=== PATIENT | male | born 1975 | race American Indian/Alaskan Native ===

== ENCOUNTER 2021-08-30 21:29 | Emergency (ER) | payer MEDICARE ==
--- NOTE | 2021-08-30 21:59 | Emergency Department Report ---
ED Palpitations HPI - General Chief Complaint: Arrhythmia/Palpitations Stated Complaint: SVT Time Seen by Provider: 08/30/21 21:40 Source: patient, EMS Mode of arrival: Stretcher Limitations: No Limitations - History of Present Illness Initial Comments: Patient is a 46-year-old male who presents emergency room with complaints of palpitations and fast heart rate. Patient states that he felt his heart rate increased and he called EMS. Patient states the ambulance tried multiple vasovagal maneuvers without success. Patient states that he was then given a medication and he instantly slowed down. Patient states that he normally takes metoprolol 50 mg twice a day but missed it for today. Patient states is been over 24 hours since he took metoprolol. Patient states that he is on dialysis and he has been compliant with his dialysis schedule. Patient states he had dialysis yesterday. Patient brought in by EMS. Patient states last time he gisella t into SVT or A. fib was years ago. Patient denies chest pain. Patient denies shortness of breath. Patient denies recent travel. Patient denies recent international travel. Patient denies exposure to the novel coronavirus. Patient denies sick contacts. Patient denies fever and chills. Patient denies cough. Patient denies diarrhea. Patient denies coming in contact with anybody with symptoms of the novel coronavirus. Patient brought in by EMS. Report received from EMS. EMS states that the patient's heart rate was in the 170s and the patient was given 6 of adenosine and immediately converted. Since the adenosine, EMS states the patient's vital signs have been stable. MD Complaint: rapid heart beat, palpitations -: Sudden Context: occured during rest Arrythmia History: atrial fibrillation, SVT Associated Symptoms: denies other symptoms Treatments Prior to Arrival: vagal maneuvers, adenosine - Related Data Allergies Allergy/AdvReac Type Severity Reaction Status Date / Time No Known Allergies Allergy Unverified 08/30/21 21:37 ED Review of Systems ROS: Stated complaint: SVT Other details as noted in HPI Constitutional: denies: chills, fever Eyes: denies: eye pain, eye discharge, vision change ENT: denies: ear pain, throat pain Respiratory: denies: cough, shortness of breath, wheezing Cardiovascular: as per HPI, palpitations. denies: chest pain Endocrine: no symptoms reported Gastrointestinal: denies: abdominal pain, nausea, diarrhea Genitourinary: denies: urgency, dysuria Musculoskeletal: denies: back pain, joint swelling, arthralgia Skin: denies: rash, lesions Neurological: denies: headache, weakness, paresthesias Psychiatric: denies: anxiety, depression Hematological/Lymphatic: denies: easy bleeding, easy bruising ED Past Medical Hx - Past Medical History Previous Medical History?: Yes Hx Hypertension: Yes Hx Renal Disease: Yes Additional medical history: DIALYSIS - Surgical History Past Surgical History?: Yes Additional Surgical History: LEFT ARM DIALYSIS SITE - Family History Family history: no significant - Social History Smoking Status: Never Smoker Substance Use Type: None ED Physical Exam - General Limitations: No Limitations General appearance: alert, in no apparent distress - Head Head exam: Present: atraumatic, normocephalic - Eye Eye exam: Present: normal appearance - ENT ENT exam: Present: mucous membranes moist - Neck Neck exam: Present: normal inspection - Respiratory Respiratory exam: Present: normal lung sounds bilaterally. Absent: respiratory distress - Cardiovascular Cardiovascular Exam: Present: regular rate, normal rhythm. Absent: systolic murmur, diastolic murmur, rubs, gallop - GI/Abdominal GI/Abdominal exam: Present: soft, normal bowel sounds - Rectal Rectal exam: Present: deferred - Extremities Exam Extremities exam: Present: normal inspection - Back Exam Back exam: Present: normal inspection - Neurological Exam Neurological exam: Present: alert, oriented X3 - Psychiatric Psychiatric exam: Present: normal affect, normal mood - Skin Skin exam: Present: warm, dry, intact, normal color. Absent: rash ED Course Vital Signs 08/30/21 08/30/21 08/31/21 21:41 22:30 00:14 Temperature 98.5 F 98.1 F Pulse Rate 78 75 74 Respiratory 118 H 20 Rate Blood Pressure Blood Pressure 119/64 109/53 [Right] O2 Sat by Pulse 98 98 Oximetry 08/31/21 08/31/21 08/31/21 00:32 00:35 00:58 Temperature 98.1 F 98.1 F Pulse Rate 67 62 66 Respiratory 18 20 Rate Blood Pressure 131/61 Blood Pressure 137/61 135/60 [Right] O2 Sat by Pulse 99 99 Oximetry - Reevaluation(s) Reevaluation #1: Patient is connected to the heart monitor and showed a heart rate in the 80s. Patient's vital signs are stable. Patient vital signs are reassuring. Patient denies chest pain. Patient denies shortness of breath. 08/30/21 22:04 Reevaluation #2: Patient states he is feeling fine. Patient denies chest pain. Patient denies palpitations. Patient denies shortness of breath. Patient's current blood pressure is 132/70. Patient's heart rate is 72. Patient will be given 25 mg of metoprolol. 08/31/21 00:27 Reevaluation #3: Patient states has had this many at times. Patient states he does not want to stay in the hospital. Patient states he wants to go home. I discussed all results and clinical findings with patient. I discussed plan of care with patient. Patient agrees with plan of care. Patient is stable for discharge. Patient will be discharged home. Patient given discharge instructions. Patient voiced understanding of discharge instructions. 08/31/21 01:01 ED Medical Decision Making - Lab Data Result diagrams: 08/30/21 22:13 08/30/21 22:13 - EKG Data -: EKG Interpreted by Me EKG shows normal: sinus rhythm, axis, intervals, QRS complexes, ST-T waves Rate: normal - Radiology Data Radiology results: report reviewed, image reviewed XR chest 1V ap INDICATION / CLINICAL INFORMATION: Dysrhythmia. COMPARISON: None available. FINDINGS: SUPPORT DEVICES: None. HEART /PULMONARY VASCULATURE: Cardiac enlargement with pulmonary vasculature congestion. LUNGS / PLEURA: Mild interstitial edema. No pneumothorax. ADDITIONAL FINDINGS: No significant additional findings. IMPRESSION: CHF with mild interstitial edema. - Medical Decision Making Patient is a 46-year-old male who presents to the emergency room with complaints of palpitation and fast heart rate. Patient stated he missed his metoprolol for the last 24 hours. Patient normally takes 50 mg metoprolol twice a day. Patient states the symptoms resolved after being given 6 of adenosine from EMS. Patient's rhythm and heart rate were stable and ER. Patient in a sinus rhythm the entire time in the ER. Patient was asymptomatic from the initial evaluation. Patient blood pressure was monitored. Part patient's heart rate was monitored. Patient's vital signs are reassuring. Patient was given half his normal dose of metoprolol. Patient had labs done which were essentially unremarkable but consistent with end-stage renal disease. Patient is also a dialysis patient. Patient is compliant with his dialysis schedule. Patient is stable for discharge. Patient not require any further emergency medical service. Patient does not require inpatient services. I discussed all results and clinical findings with patient. I discussed plan of care with patient. Patient agrees with plan of care. Patient is stable for discharge. Patient will be discharged home. Patient given discharge instructions. Patient voiced understanding of discharge instructions. - Differential Diagnosis Palpitations, SVT, missed medications Critical Care Time: Yes Critical care time in (mins) excluding proc time.: 35 Critical care attestation.: If time is entered above; I have spent that time in minutes in the direct care of this critically ill patient, excluding procedure time. Critical Care Time: 35 minutes ED Disposition Clinical Impression: SVT (supraventricular tachycardia), Medication error, Palpitations Disposition: 01 HOME / SELF CARE / HOMELESS Is pt being admited?: No Does the pt Need Aspirin: No Condition: Stable Instructions: Supraventricular Tachycardia, Adult, Palpitations, [id number] Additional Instructions: Patient to restart metoprolol. Patient to follow-up with primary care in 2 to 3 days. Patient to follow-up with cardio in 2 to 3 days. Patient to rest. Patient to increase water. Patient to avoid strenuous exercise or heavy lifting until cleared by primary care and cardiology. Patient to continue dialysis schedule. . Patient to return to the ER if condition worsens, changes or new symptoms arise.. Referrals: THI MATHEW MD [Primary Care Provider] - 2-3 Days Time of Disposition: 01:12
--- NOTE | 2021-08-30 22:27 | XRay Report ---
XR chest 1V ap INDICATION / CLINICAL INFORMATION: Dysrhythmia. COMPARISON: None available. FINDINGS: SUPPORT DEVICES: None. HEART /PULMONARY VASCULATURE: Cardiac enlargement with pulmonary vasculature congestion. LUNGS / PLEURA: Mild interstitial edema. No pneumothorax. ADDITIONAL FINDINGS: No significant additional findings. IMPRESSION: CHF with mild interstitial edema. Signer Name: Lukasz Keith MD Signed: 08/30/2021 10:23 PM Workstation Name: [id number]
[2021-08-30 22:55] LABS: Alanine Aminotransferase 18 units/L (7-56); BUN/Creatinine Ratio 3; Blood Urea Nitrogen 37 mg/dL (9-20); Calcium 7.9 mg/dL (8.4-10.2); Hemolysis Index 6
[2021-08-30 23:27] LABS: Basophils # (Auto) 0.1 K/mm3 (0.0-0.1); Eosinophils # (Auto) 0.1 K/mm3 (0.0-0.4); Eosinophils % (Auto) 1.5 % (0.0-4.3); Hematocrit 31.3 % (35.5-45.6); Hemoglobin 9.7 gm/dl (11.8-15.2); Lymphocytes # (Auto) 1.1 K/mm3 (1.2-5.4); Lymphocytes % (Auto) 12.9 % (13.4-35.0); Mean Corpuscular HGB Conc 31 % (32-34); Mean Corpuscular Volume 97 fl (84-94); Monocytes # (Auto) 0.8 K/mm3 (0.0-0.8); Monocytes % (Auto) 9.2 % (0.0-7.3); Platelet Count 320 K/mm3 (140-440); Red Blood Count 3.24 M/mm3 (3.65-5.03); Red Cell Distribution Width 14.5 % (13.2-15.2)
[2021-08-31] MEDS ORDERED: METOPROLOL TARTRATE 50 MG TAB PO ONE (00:28)
[2021-08-31 00:59] VITALS: BP 135/60
--- NOTE | 2021-09-03 14:10 | Electrocardiograph Report ---
[facility] Test Date: 2021-08-30 Test Time: 23:54:24 Pat Name: KHOA HODGES Department: Room: Gender: M [employer]: HASMUKH : 1975 Requested By: JOANNE FONTANA III Order Number: [id number] Reading MD: Lauren Hardin Measurements Intervals [place] Rate: 67 P: 31 MO: 189 QRS: -5 QRSD: 81 T: 47 QT: 461 QTc: 486 Interpretive Statements Sinus rhythm Left ventricular hypertrophy No previous ECG available for comparison Electronically Signed On 09-03-2021 14:09:44 EST by Lauren Hardin
== END 2021-08-31 01:15 | disposition home or self-care (01) ==
LOC: ED 21:29
DX: I47.1 Supraventricular tachycardia (principal); T50.905A Adverse effect of unspecified drugs, medicaments and biological substances, initial encounter; R00.2 Palpitations; I10 Essential (primary) hypertension; Z98.890 Other specified postprocedural states; Y92.89 Other specified places as the place of occurrence of the external cause
CPT/HCPCS: 36415; 71045; 80053; 84484; 85025; 93005; 99291